=== PATIENT | female | born 1960 | race Caucasian/White ===

== ENCOUNTER 2022-02-04 09:56 | Emergency (ER) | payer BC ==
[2022-02-04 10:51] LABS: HEMOGLOBIN 14.9 gm/dl (12.3-15.3); RED BLOOD COUNT 4.61 M/UL (4.00-5.10); WHITE BLOOD COUNT 15.8 K/UL (4.5-11.0)
[2022-02-04 11:40] LABS: BUN/CREATININE RATIO 17 (0-10)
[2022-02-04] MEDS ORDERED: HYDROCODON-ACE1 EAC4 PO (14:22)
[2022-02-04] MEDS ORDERED: DOXYCYCLINE HY100 MG PO (14:22)
== END 2022-02-04 14:41 | disposition home or self-care (01) ==
LOC: ER1 09:56
PROVIDERS: Family Medicine
DX: M48.54XA Collapsed vertebra, not elsewhere classified, thoracic region, initial encounter for fracture (principal); I10 Essential (primary) hypertension; E87.1 Hypo-osmolality and hyponatremia; F17.200 Nicotine dependence, unspecified, uncomplicated; E87.6 Hypokalemia; Z88.2 Allergy status to sulfonamides; Z79.899 Other long term (current) drug therapy
CPT/HCPCS: 71045; 72072; 80053; 82550; 82553; 83880; 84484; 85025; 93005; 99285